=== PATIENT | male | born 1975 | race Caucasian/White ===

== ENCOUNTER → 2018-10-23 | Outpatient (CLI) | payer BC ==
--- NOTE | 2018-10-23 17:26 | Diagnostic Imaging Report ---
INDICATION: Fell 8 months ago. Right foot injury. Persistent pain. FINDINGS: Three views of the right foot show no fracture, dislocation or other acute bony abnormality. IMPRESSION: No acute abnormality is seen. Dictated by: Dictated on workstation # [id number]
== END ==
LOC: RAD FS 17:09
PROVIDERS: ATTEND Physician Assistant
DX: S99.921A Unspecified injury of right foot, initial encounter (principal)
CPT/HCPCS: 73630